=== PATIENT | female | born 1940 | race Caucasian/White ===

== ENCOUNTER → 2016-10-17 | Outpatient (CLI) | payer MEDICARE ==
[~2016-10-17] VITALS: Ht 149.9 cm; Wt 104.3 kg
[~2016-10-17] MED LIST: ASPIRIN 81M81 MG/TA2 PO; CALCIUM 600MG+D1 TAB PO; CORDARONE200 MG/TAB PO; ELIQUIS 5MG PO; FASTIN30 MG PO; FERROUS SULFATE27 MG PO; FISH OIL1000 MG PO; HYZAAR 25 MG-101 TAB PO; IRON TABLETS325 MG PO; K-DUR20 MEQ PO; KLOR-CON M2020 MEQ PO; LASIX 20MG TABL20 MG PO; LASIX 40MG TABL40 MG PO; MICRO-K 1010 MEQ PO; MIRO OU; MULTAQ400 MG PO; MULTIPLE VITAMI1 CAP PO; MYRBETR25MG PO; MYRBETR50MG PO; NORCO 325 MG-51 TAB PO; OSTEO-BI-FLEX 21 TAB PO; PHENTERMINE15 MG PO; PRADAXA 150MG150 MG PO; RITE AID BIO2500 MCG; SYNTHROID0.125 MG/T PO; TIAZAC120 MG PO; TIAZAC180 MG PO; TIAZAC240 MG PO; TOPAMAX 25MG25 M1 PO; TOPROL XL 50MG50 MG PO; TYLENOL 500MG500 MG PO; TYLENOL PM EXTR1 TA1 PO; ULTRAM 50MG TAB50 MG PO; VITAMIN D1000 IU PO; ZOCOR 40MG40 MG PO
[2016-10-17 11:02] VITALS: BP 124/60; PULSE 100
[2016-10-17 11:27] VITALS: BP 124/60; PULSE 100
== END ==
LOC: LIGHT 10:50
DX: E88.81 Metabolic syndrome and other insulin resistance (principal); E66.01 Morbid (severe) obesity due to excess calories; Z68.42 Body mass index [BMI] 45.0-49.9, adult; I10 Essential (primary) hypertension

== ENCOUNTER → 2016-12-05 | Outpatient (CLI) | payer MEDICARE ==
[~2016-12-05] VITALS: Ht 149.9 cm; Wt 103.9 kg
== END ==
LOC: LIGHT 10:15
DX: E88.81 Metabolic syndrome and other insulin resistance (principal); I10 Essential (primary) hypertension; R73.01 Impaired fasting glucose; E66.01 Morbid (severe) obesity due to excess calories; Z68.42 Body mass index [BMI] 45.0-49.9, adult

== ENCOUNTER → 2017-01-09 | Outpatient (CLI) | payer MEDICARE ==
[~2017-01-09] VITALS: Ht 149.9 cm; Wt 103.2 kg
[2017-01-09 11:19] VITALS: BP 136/80; PULSE 72
== END ==
LOC: LIGHT 11:15
DX: E88.81 Metabolic syndrome and other insulin resistance (principal); I10 Essential (primary) hypertension; E66.01 Morbid (severe) obesity due to excess calories; Z68.42 Body mass index [BMI] 45.0-49.9, adult

== ENCOUNTER → 2017-02-20 | Outpatient (CLI) | payer MEDICARE ==
[~2017-02-20] VITALS: Ht 149.9 cm; Wt 102.7 kg
[2017-02-20 11:38] VITALS: BP 132/62; PULSE 72
== END ==
LOC: LIGHT 11:35
DX: E88.81 Metabolic syndrome and other insulin resistance (principal); E66.01 Morbid (severe) obesity due to excess calories; Z68.42 Body mass index [BMI] 45.0-49.9, adult; Z71.3 Dietary counseling and surveillance; I10 Essential (primary) hypertension

== ENCOUNTER 2017-03-03 16:30 | Emergency (ER) | payer MEDICARE ==
[~2017-03-03] VITALS: Ht 149.9 cm; Wt 102.9 kg
[~2017-03-03 16:30] MED LIST changes: -MIRO OU; -NORCO 325 MG-51 TAB PO
[2017-03-03 16:32] VITALS: TEMP 98.3
[2017-03-03] MEDS ORDERED: NORCO 325 MG-51 TAB PO (18:18)
[2017-03-03 19:12] VITALS: BP 146/65; PULSE 80
[2017-05-29] MEDS ORDERED: MIRO OU (10:44)
== END 2017-03-03 19:20 | disposition home or self-care (01) ==
LOC: COL.ER 16:30
DX: S42.012A Anterior displaced fracture of sternal end of left clavicle, initial encounter for closed fracture (principal); W10.1XXA Fall (on)(from) sidewalk curb, initial encounter; Y92.512 Supermarket, store or market as the place of occurrence of the external cause; I48.91 Unspecified atrial fibrillation; Z79.01 Long term (current) use of anticoagulants; Z79.82 Long term (current) use of aspirin

== ENCOUNTER → 2017-04-17 | Outpatient (CLI) | payer MEDICARE ==
[~2017-04-17] VITALS: Ht 149.9 cm; Wt 102.5 kg
[~2017-04-17] MED LIST changes: +MIRO OU; +NORCO 325 MG-51 TAB PO
[2017-04-17 11:09] VITALS: BP 150/72; PULSE 68
== END ==
LOC: LIGHT 11:05
DX: E88.81 Metabolic syndrome and other insulin resistance (principal); E66.01 Morbid (severe) obesity due to excess calories; Z68.42 Body mass index [BMI] 45.0-49.9, adult; Z71.3 Dietary counseling and surveillance; I10 Essential (primary) hypertension

== ENCOUNTER → 2017-05-29 | Outpatient (CLI) | payer MEDICARE ==
[~2017-05-29] VITALS: Ht 149.9 cm; Wt 100.7 kg
[2017-05-29 10:48] VITALS: BP 138/78; PULSE 72
== END ==
LOC: LIGHT 05-29 10:37
DX: E88.81 Metabolic syndrome and other insulin resistance (principal); E66.01 Morbid (severe) obesity due to excess calories; Z68.41 Body mass index [BMI] 40.0-44.9, adult; Z71.3 Dietary counseling and surveillance; I10 Essential (primary) hypertension

== ENCOUNTER → 2017-07-10 | Outpatient (CLI) | payer MEDICARE ==
[~2017-07-10] VITALS: Ht 149.9 cm; Wt 98.2 kg
[2017-07-10 13:02] VITALS: BP 138/70; PULSE 64
== END ==
LOC: LIGHT 09:57
DX: E88.81 Metabolic syndrome and other insulin resistance (principal); E66.01 Morbid (severe) obesity due to excess calories; Z68.41 Body mass index [BMI] 40.0-44.9, adult; Z71.3 Dietary counseling and surveillance; I10 Essential (primary) hypertension

== ENCOUNTER → 2017-08-21 | Outpatient (CLI) | payer MEDICARE ==
[~2017-08-21] VITALS: Ht 149.9 cm; Wt 98.0 kg
[2017-08-21 11:29] VITALS: BP 124/80; PULSE 64
== END ==
LOC: LIGHT 10:39
DX: E88.81 Metabolic syndrome and other insulin resistance (principal); E66.01 Morbid (severe) obesity due to excess calories; Z68.41 Body mass index [BMI] 40.0-44.9, adult; Z71.3 Dietary counseling and surveillance; I10 Essential (primary) hypertension

== ENCOUNTER → 2017-09-18 | Outpatient (CLI) | payer MEDICARE ==
[~2017-09-18] VITALS: Ht 149.9 cm; Wt 97.7 kg
[2017-09-18 11:16] VITALS: BP 108/54; PULSE 56
== END ==
LOC: LIGHT 10:51
DX: E88.81 Metabolic syndrome and other insulin resistance (principal); E66.01 Morbid (severe) obesity due to excess calories; Z68.41 Body mass index [BMI] 40.0-44.9, adult; Z71.3 Dietary counseling and surveillance; I10 Essential (primary) hypertension
CPT/HCPCS: G0463

== ENCOUNTER → 2017-10-30 | Outpatient (CLI) | payer MEDICARE ==
[~2017-10-30] VITALS: Ht 149.9 cm; Wt 98.2 kg
[2017-10-30 11:31] VITALS: BP 138/70; PULSE 60
== END ==
LOC: LIGHT 10:22
DX: E88.81 Metabolic syndrome and other insulin resistance (principal); E66.01 Morbid (severe) obesity due to excess calories; Z68.41 Body mass index [BMI] 40.0-44.9, adult; Z71.3 Dietary counseling and surveillance; I10 Essential (primary) hypertension
CPT/HCPCS: G0463

== ENCOUNTER → 2017-12-25 | Outpatient (CLI) | payer MEDICARE ==
[~2017-12-25] VITALS: Ht 149.9 cm; Wt 96.8 kg
[2017-12-25 11:40] VITALS: BP 138/68; PULSE 60
== END ==
LOC: LIGHT 09:02
DX: E88.81 Metabolic syndrome and other insulin resistance (principal); E66.01 Morbid (severe) obesity due to excess calories; Z68.41 Body mass index [BMI] 40.0-44.9, adult; Z71.3 Dietary counseling and surveillance; I10 Essential (primary) hypertension
CPT/HCPCS: G0463

== ENCOUNTER → 2018-03-03 | Outpatient (CLI) | payer MEDICARE | LOC: MC.RAD 10:48 | DX: Z12.31 Encounter for screening mammogram for malignant neoplasm of breast (principal); N63.10 Unspecified lump in the right breast, unspecified quadrant ==

== ENCOUNTER → 2018-03-05 | Outpatient (CLI) | payer MEDICARE | LOC: MC.RAD 13:50 | DX: N63.10 Unspecified lump in the right breast, unspecified quadrant (principal) ==

== ENCOUNTER → 2018-03-12 | Outpatient (CLI) | payer MEDICARE ==
[~2018-03-12] VITALS: Ht 149.9 cm; Wt 96.8 kg
[~2018-03-12] MED LIST changes: +ZOCOR 10MG10 MG PO; -ZOCOR 40MG40 MG PO
[2018-03-12 11:11] VITALS: BP 150/64; PULSE 64
== END ==
LOC: LIGHT 10:55
DX: E88.81 Metabolic syndrome and other insulin resistance (principal); E66.01 Morbid (severe) obesity due to excess calories; Z68.41 Body mass index [BMI] 40.0-44.9, adult; Z71.3 Dietary counseling and surveillance; I10 Essential (primary) hypertension
CPT/HCPCS: G0463

== ENCOUNTER → 2018-04-09 | Outpatient (CLI) | payer MEDICARE | LOC: LIGHT 11:34 | DX: E88.81 Metabolic syndrome and other insulin resistance (principal); E66.01 Morbid (severe) obesity due to excess calories; Z71.3 Dietary counseling and surveillance; I10 Essential (primary) hypertension | CPT/HCPCS: G0463 ==

== ENCOUNTER → 2018-06-10 | Outpatient (CLI) | payer MEDICARE | LOC: MHCPAIN 14:19 | DX: G89.29 Other chronic pain (principal); M47.817 Spondylosis without myelopathy or radiculopathy, lumbosacral region; M54.16 Radiculopathy, lumbar region; M53.3 Sacrococcygeal disorders, not elsewhere classified | CPT/HCPCS: G0463 ==

== ENCOUNTER → 2018-06-10 | Outpatient (CLI) | payer MEDICARE | LOC: COL.RAD 15:30 | DX: Z46.2 Encounter for fitting and adjustment of other devices related to nervous system and special senses (principal); M47.895 Other spondylosis, thoracolumbar region; M53.87 Other specified dorsopathies, lumbosacral region ==

== ENCOUNTER → 2018-06-11 | Outpatient (CLI) | payer MEDICARE ==
[~2018-06-11] VITALS: Ht 149.9 cm; Wt 93.7 kg
[2018-06-11 11:39] VITALS: BP 144/72; PULSE 68
== END ==
LOC: LIGHT 11:05
DX: E88.81 Metabolic syndrome and other insulin resistance (principal); R73.01 Impaired fasting glucose; I10 Essential (primary) hypertension; E66.01 Morbid (severe) obesity due to excess calories; Z68.41 Body mass index [BMI] 40.0-44.9, adult; Z71.3 Dietary counseling and surveillance
CPT/HCPCS: G0463

== ENCOUNTER → 2018-06-29 | Outpatient (CLI) | payer MEDICARE | LOC: MHCPAIN 12:47 | DX: M47.817 Spondylosis without myelopathy or radiculopathy, lumbosacral region (principal); M54.16 Radiculopathy, lumbar region | CPT/HCPCS: J1040; Q9967 ==

== ENCOUNTER → 2018-07-21 | Outpatient (CLI) | payer MEDICARE | LOC: COL.RAD 09:19 | DX: N18.1 Chronic kidney disease, stage 1 (principal); N28.1 Cyst of kidney, acquired ==

== ENCOUNTER → 2018-08-20 | Outpatient (CLI) | payer MEDICARE, OTHER | LOC: MC.RAD 08:47 | DX: N63.10 Unspecified lump in the right breast, unspecified quadrant (principal) ==

== ENCOUNTER → 2018-09-03 | Outpatient (CLI) | payer MEDICARE ==
[~2018-09-03] VITALS: Ht 149.9 cm; Wt 95.0 kg
[2018-09-03 11:29] VITALS: BP 152/70; PULSE 80
== END ==
LOC: LIGHT 11:06
DX: E88.81 Metabolic syndrome and other insulin resistance (principal); R73.01 Impaired fasting glucose; I10 Essential (primary) hypertension; E66.01 Morbid (severe) obesity due to excess calories; Z68.42 Body mass index [BMI] 45.0-49.9, adult; Z71.3 Dietary counseling and surveillance
CPT/HCPCS: G0463

== ENCOUNTER → 2018-09-29 | Outpatient (CLI) | payer MEDICARE | LOC: MHCPAIN 14:51 | DX: G89.29 Other chronic pain (principal); M47.817 Spondylosis without myelopathy or radiculopathy, lumbosacral region; M54.16 Radiculopathy, lumbar region; M53.3 Sacrococcygeal disorders, not elsewhere classified | CPT/HCPCS: G0463 ==

== ENCOUNTER 2018-10-20 08:24 | Day surgery (SDC) | payer MEDICARE ==
[~2018-10-20] VITALS: Ht 149.9 cm; Wt 96.7 kg
[~2018-10-20 08:24] MED LIST changes: -CALCIUM 600MG+D1 TAB PO; +CALCIUM CARBON650 M2 PO; -VITAMIN D1000 IU PO; +VITAMIND3 5000 PO
[2018-10-20] MEDS ORDERED: AMOXICILLIN 50500 MG PO (08:54)
[2018-10-20] MEDS ORDERED: COLACE 100100 MG/CAP PO (09:02)
[2018-10-20 09:17] VITALS: BP 171/99; PULSE 73; TEMP 97.7
[2018-10-20 10:45] VITALS: BP 140/66; PULSE 71; TEMP 98.5
--- NOTE | 2018-10-20 10:45 | NUR ---
Pt to GI bay 5 via cart from [address] [facility]. Pt drowsy, but awake. Pt ambulates to recliner with stand by assitance. in room. Water and muffin given per pt request. Will continue to monitor. Call light within reach.
[2018-10-20 11:00] VITALS: BP 133/53; PULSE 74
--- NOTE | 2018-10-20 11:00 | NUR ---
Pt continues to rest. Denies needs. Call light within reach.
[2018-10-20 11:15] VITALS: BP 135/72; PULSE 70
--- NOTE | 2018-10-20 11:15 | NUR ---
Pt continues to rest. Denies needs. Call light within reach.
--- NOTE | 2018-10-20 11:20 | NUR ---
Discharge instructions provided. Pt voices understanding. IV site discontinued with all parts intact. Pt up to dress. Call light within reach.
--- NOTE | 2018-10-20 11:20 | NUR ---
Pt escorted to private car via wheel chair. Pt accompanied home by her .
[2018-10-20 12:44] VITALS: BP 125/56; PULSE 68
== END 2018-10-20 11:40 | disposition home or self-care (01) ==
LOC: SDCO 08:24
DX: Z12.11 Encounter for screening for malignant neoplasm of colon (principal); D12.3 Benign neoplasm of transverse colon; K64.0 First degree hemorrhoids; K57.30 Diverticulosis of large intestine without perforation or abscess without bleeding; I10 Essential (primary) hypertension; E78.00 Pure hypercholesterolemia, unspecified; E03.9 Hypothyroidism, unspecified; I48.91 Unspecified atrial fibrillation; Z96.653 Presence of artificial knee joint, bilateral; Z79.01 Long term (current) use of anticoagulants; Z88.1 Allergy status to other antibiotic agents; Z88.2 Allergy status to sulfonamides; Z91.018 Allergy to other foods
CPT/HCPCS: J2250; J2405; J3010; J7030

== ENCOUNTER → 2018-12-03 | Outpatient (CLI) | payer MEDICARE ==
[~2018-12-03] VITALS: Ht 149.9 cm; Wt 97.7 kg
[~2018-12-03] MED LIST changes: +AMOXICILLIN 50500 MG PO; +COLACE 100100 MG/CAP PO
[2018-12-03 11:45] VITALS: BP 150/64; PULSE 60
== END ==
LOC: LIGHT 10-29 15:25
DX: E88.81 Metabolic syndrome and other insulin resistance (principal); R73.01 Impaired fasting glucose; I10 Essential (primary) hypertension; E66.01 Morbid (severe) obesity due to excess calories; Z68.41 Body mass index [BMI] 40.0-44.9, adult; Z71.3 Dietary counseling and surveillance
CPT/HCPCS: G0463

== ENCOUNTER → 2018-12-22 | Outpatient (CLI) | payer MEDICARE | LOC: MHCPAIN 13:40 | DX: G89.29 Other chronic pain (principal); M47.817 Spondylosis without myelopathy or radiculopathy, lumbosacral region; M54.16 Radiculopathy, lumbar region; M53.3 Sacrococcygeal disorders, not elsewhere classified | CPT/HCPCS: G0463 ==

== ENCOUNTER → 2018-12-31 | Outpatient (CLI) | payer MEDICARE | LOC: MHCPAIN 12:55 | DX: M47.817 Spondylosis without myelopathy or radiculopathy, lumbosacral region (principal); M54.16 Radiculopathy, lumbar region | CPT/HCPCS: J1100; Q9967 ==

== ENCOUNTER → 2019-01-28 | Outpatient (CLI) | payer MEDICARE ==
[~2019-01-28] VITALS: Ht 149.9 cm; Wt 98.9 kg
[~2019-01-28] MED LIST changes: +TOPAMAX50 MG PO
[2019-01-28 10:01] VITALS: BP 150/70; PULSE 84
== END ==
LOC: LIGHT 09:53
DX: E88.81 Metabolic syndrome and other insulin resistance (principal); R73.01 Impaired fasting glucose; I10 Essential (primary) hypertension; E66.01 Morbid (severe) obesity due to excess calories; Z68.41 Body mass index [BMI] 40.0-44.9, adult; Z71.3 Dietary counseling and surveillance
CPT/HCPCS: G0463

== ENCOUNTER → 2019-03-04 | Outpatient (CLI) | payer MEDICARE ==
[~2019-03-04] VITALS: Ht 149.9 cm; Wt 94.1 kg
[2019-03-04 11:57] VITALS: BP 130/60; PULSE 76
== END ==
LOC: LIGHT 11:23
DX: E88.81 Metabolic syndrome and other insulin resistance (principal); R73.01 Impaired fasting glucose; I10 Essential (primary) hypertension; E66.01 Morbid (severe) obesity due to excess calories; Z68.41 Body mass index [BMI] 40.0-44.9, adult; Z71.3 Dietary counseling and surveillance
CPT/HCPCS: G0463

== ENCOUNTER → 2019-04-06 | Outpatient (CLI) | payer MEDICARE | LOC: MHCPAIN 13:06 | DX: G89.29 Other chronic pain (principal); M47.817 Spondylosis without myelopathy or radiculopathy, lumbosacral region; M54.16 Radiculopathy, lumbar region; M53.3 Sacrococcygeal disorders, not elsewhere classified | CPT/HCPCS: G0463 ==

== ENCOUNTER → 2019-04-15 | Outpatient (CLI) | payer MEDICARE ==
[~2019-04-15] VITALS: Ht 149.9 cm; Wt 93.4 kg
[2019-04-15 13:32] VITALS: BP 146/76; PULSE 68
== END ==
LOC: LIGHT 11:48
DX: E88.81 Metabolic syndrome and other insulin resistance (principal); R73.01 Impaired fasting glucose; I10 Essential (primary) hypertension; E66.01 Morbid (severe) obesity due to excess calories; Z68.41 Body mass index [BMI] 40.0-44.9, adult; Z71.3 Dietary counseling and surveillance
CPT/HCPCS: G0463

== ENCOUNTER → 2019-04-19 | Outpatient (CLI) | payer MEDICARE | LOC: MHCPAIN 10:58 | DX: M47.817 Spondylosis without myelopathy or radiculopathy, lumbosacral region (principal); M54.16 Radiculopathy, lumbar region | CPT/HCPCS: J1100; Q9967 ==

== ENCOUNTER → 2019-06-10 | Outpatient (CLI) | payer MEDICARE ==
[~2019-06-10] VITALS: Ht 149.9 cm; Wt 94.3 kg
[2019-06-10 14:10] VITALS: BP 136/56; PULSE 64
== END ==
LOC: LIGHT 05-27 11:41
DX: E88.81 Metabolic syndrome and other insulin resistance (principal); R73.01 Impaired fasting glucose; I10 Essential (primary) hypertension; E66.01 Morbid (severe) obesity due to excess calories; Z68.41 Body mass index [BMI] 40.0-44.9, adult; Z71.3 Dietary counseling and surveillance
CPT/HCPCS: G0463

== ENCOUNTER → 2019-07-29 | Outpatient (CLI) | payer MEDICARE ==
[~2019-07-29] VITALS: Ht 149.9 cm; Wt 94.6 kg
[2019-07-29 13:16] VITALS: BP 160/80; PULSE 68
== END ==
LOC: LIGHT 11:50
DX: E88.81 Metabolic syndrome and other insulin resistance (principal); R73.01 Impaired fasting glucose; I10 Essential (primary) hypertension; E66.01 Morbid (severe) obesity due to excess calories; Z68.41 Body mass index [BMI] 40.0-44.9, adult; Z71.3 Dietary counseling and surveillance
CPT/HCPCS: G0463

== ENCOUNTER → 2019-08-11 | Outpatient (CLI) | payer MEDICARE | LOC: MHCPAIN 12:50 | DX: G89.29 Other chronic pain (principal); M47.817 Spondylosis without myelopathy or radiculopathy, lumbosacral region; M54.16 Radiculopathy, lumbar region; M53.3 Sacrococcygeal disorders, not elsewhere classified | CPT/HCPCS: G0463 ==

== ENCOUNTER → 2019-08-23 | Outpatient (CLI) | payer MEDICARE | LOC: MHCPAIN 10:44 | DX: M51.27 Other intervertebral disc displacement, lumbosacral region (principal) | CPT/HCPCS: J1100; Q9967 ==

== ENCOUNTER → 2019-12-02 | Outpatient (CLI) | payer MEDICARE ==
[~2019-12-02] VITALS: Ht 149.9 cm; Wt 98.4 kg
[2019-12-02 14:46] VITALS: BP 154/72; PULSE 60
== END ==
LOC: LIGHT 11-11 13:50
DX: Z68.41 Body mass index [BMI] 40.0-44.9, adult (principal); E88.81 Metabolic syndrome and other insulin resistance; R73.01 Impaired fasting glucose; I10 Essential (primary) hypertension
CPT/HCPCS: G0463

== ENCOUNTER → 2020-02-08 | Outpatient (CLI) | payer MEDICARE | LOC: MHCPAIN 14:40 | DX: M53.3 Sacrococcygeal disorders, not elsewhere classified (principal); M54.5 Low back pain; G89.29 Other chronic pain | CPT/HCPCS: G0463 ==

== ENCOUNTER → 2020-02-24 | Outpatient (CLI) | payer MEDICARE | LOC: MHCPAIN 07:46 | DX: M53.3 Sacrococcygeal disorders, not elsewhere classified (principal); G89.29 Other chronic pain | CPT/HCPCS: G0260; J1040; Q9967 ==

== ENCOUNTER 2020-05-31 06:39 | Day surgery (SDC) | payer MEDICARE ==
[~2020-05-31] VITALS: Ht 149.9 cm; Wt 100.0 kg
[~2020-05-31 06:39] MED LIST changes: -MULTIPLE VITAMI1 CAP PO; +MULTIPLE VITAMI1 TA5 PO
[2020-05-31] MEDS ORDERED: TYLENOL 500MG500 MG PO (08:02)
[2020-05-31] MEDS ORDERED: TYLENOL PM EXTR1 TA1 PO (08:03)
[2020-05-31] MEDS ORDERED: MASON NATURAL2000 IU PO (08:04)
[2020-05-31] MEDS ORDERED: MYRBETR50MG PO (08:08)
[2020-05-31 08:11] VITALS: BP 142/71; PULSE 83; TEMP 98
[2020-05-31 11:02] VITALS: BP 134/72; PULSE 68; TEMP 97.4
--- NOTE | 2020-05-31 11:02 | NUR ---
The patient arrived back to [facility] from the operating room at this time. The patient appears alert and oriented and denies any pain or nausea at this time. Post operative vital signs were started at this time. The patient agrees to try some cranberry juice and a blueberry muffin. Call light is within reach. The patient denies any further needs at this time. Will continue to monitor the patient.
[2020-05-31 11:17] VITALS: BP 153/73; PULSE 77
--- NOTE | 2020-05-31 11:17 | NUR ---
The patient appears to be resting comfortably on the cart at this time. The patient appears to be tolerating her food well and denies wanting anything further to eat or drink at this itme. Call light is within reach. Will continue to monitor the patient.
[2020-05-31 11:32] VITALS: BP 139/67; PULSE 75
--- NOTE | 2020-05-31 11:32 | NUR ---
The patient has finished her food and drink and appeared to tolerate both well. The patient denies any pain or nausea at this time. Vital signs appear stable. Will continue to monitor the patient.
--- NOTE | 2020-05-31 11:38 | NUR ---
The patient ambulated to the bathroom with the use of her walker and the stand by assistance of one nurse and appeared to tolerate the activity well. The patient voided without difficulty and voices a desire to be discharged home.
--- NOTE | 2020-05-31 11:47 | NUR ---
Discharge instructions were reviewed with the patient at this time. She verbalized understanding and has no questions for the nurse at this time. The patient's IV to her left hand was removed and a pressure dressing was applied to the site. The patient was instructed to get dressed and notify the staff when she is ready to be escorted out.
--- NOTE | 2020-05-31 11:55 | NUR ---
The patient was escorted out to a private vehicle by EMMA Hendrickson. The patient's belongings and discharge paperwork were sent with her. The patient's is present to drive her home.
== END 2020-05-31 11:55 | disposition home or self-care (01) ==
LOC: SDCO
DX: N39.46 Mixed incontinence (principal); R35.0 Frequency of micturition; I48.91 Unspecified atrial fibrillation; I10 Essential (primary) hypertension; E03.9 Hypothyroidism, unspecified; E66.01 Morbid (severe) obesity due to excess calories; Z88.1 Allergy status to other antibiotic agents; Z20.828 Contact with and (suspected) exposure to other viral communicable diseases; E88.81 Metabolic syndrome and other insulin resistance; M85.80 Other specified disorders of bone density and structure, unspecified site; E78.00 Pure hypercholesterolemia, unspecified; M19.90 Unspecified osteoarthritis, unspecified site; G47.33 Obstructive sleep apnea (adult) (pediatric); Z88.2 Allergy status to sulfonamides; Z90.710 Acquired absence of both cervix and uterus; Z79.899 Other long term (current) drug therapy; Z96.82 Presence of neurostimulator; Z79.82 Long term (current) use of aspirin; Z96.653 Presence of artificial knee joint, bilateral; Z79.01 Long term (current) use of anticoagulants; Z80.3 Family history of malignant neoplasm of breast; Z80.0 Family history of malignant neoplasm of digestive organs; Z82.49 Family history of ischemic heart disease and other diseases of the circulatory system
CPT/HCPCS: A4215; J0585; J0690; J2704; J7120

== ENCOUNTER → 2020-06-27 | Outpatient (CLI) | payer MEDICARE ==
[~2020-06-27] MED LIST changes: +MASON NATURAL2000 IU PO
== END ==
LOC: MHCPAIN 14:19
DX: M47.817 Spondylosis without myelopathy or radiculopathy, lumbosacral region (principal); M54.5 Low back pain; M53.3 Sacrococcygeal disorders, not elsewhere classified; G89.29 Other chronic pain
CPT/HCPCS: G0463

== ENCOUNTER → 2020-10-17 | Outpatient (CLI) | payer MEDICARE | LOC: MHCPAIN 15:23 | DX: M47.817 Spondylosis without myelopathy or radiculopathy, lumbosacral region (principal); M53.3 Sacrococcygeal disorders, not elsewhere classified; G89.29 Other chronic pain; M54.16 Radiculopathy, lumbar region | CPT/HCPCS: G0463 ==

== ENCOUNTER → 2020-12-26 | Outpatient (CLI) | payer MEDICARE ==
[~2020-12-26] MED LIST changes: +CALCIUM 600MG+D1 TAB PO; -CALCIUM CARBON650 M2 PO; -FISH OIL1000 MG PO; +LIPITOR 10MG10 MG PO; +MAG-OX 400400 MG/TAB PO; +MASON NATURAL1200 MG PO; +PACERONE400 MG PO; +PROAIR HFA0.09 MG/AC IH; +PYRIDIUM 100MG100 MG PO; +REFRESH TEARS 330 ML OP; +SALINE 45 ML45 ML NS; +THE MEDICINE S200 M2 PO; +VESICARE 5MG5 MG PO; +XOPENEX HF0.045 MG/A IH; +[UNRECOGNIZED DRUG - OTHER] PO
== END ==
LOC: MC.RAD 14:16
DX: Z12.31 Encounter for screening mammogram for malignant neoplasm of breast (principal)

== ENCOUNTER → 2021-01-03 | Outpatient (CLI) | payer MEDICARE | LOC: MHCPAIN 14:13 | DX: M47.816 Spondylosis without myelopathy or radiculopathy, lumbar region (principal); M54.16 Radiculopathy, lumbar region; G89.29 Other chronic pain | CPT/HCPCS: G0463 ==

== ENCOUNTER 2021-02-13 06:59 | Day surgery (SDC) | payer MEDICARE ==
[~2021-02-13] VITALS: Ht 149.9 cm; Wt 98.2 kg
[~2021-02-13 06:59] MED LIST changes: -LIPITOR 10MG10 MG PO; -MAG-OX 400400 MG/TAB PO; -PACERONE400 MG PO; -PROAIR HFA0.09 MG/AC IH; -PYRIDIUM 100MG100 MG PO; -REFRESH TEARS 330 ML OP; -SALINE 45 ML45 ML NS; -THE MEDICINE S200 M2 PO; -VESICARE 5MG5 MG PO; -XOPENEX HF0.045 MG/A IH; -[UNRECOGNIZED DRUG - OTHER] PO
[2021-02-13 08:12] LABS: HEMATOCRIT 42.2 % (37.0-47.0); MEAN CELL VOLUME 98 fl (80.0-100.0); MEAN CORPUSCULAR HEMOGLOBIN 33 pg (27.0-31.0); MEAN CORPUSCULAR HGB CONC 33 g/dl (33.0-37.0); MEAN PLATELET VOLUME 10.3 fl (7.4-10.4); PLATELET COUNT 216 K/mm3 (130-400); REDCELL DISTRIBUTION WIDTH-CV 13.4 % (11.5-14.5)
[2021-02-13 08:20] LABS: INR 1.2 (0.8-3.0); PROTHROMBIN TIME 12.8 SECONDS (9.7-12.8)
[2021-02-13 08:22] LABS: PARTIAL THROMBOPLASTIN TIME 33.3 SECONDS (26.0-37.0)
[2021-02-13 08:25] LABS: CALCIUM 9.5 mg/dL (8.4-10.2); CREATININE, serum 0.49 (0.52-1.25); MAGNESIUM 1.6 mg/dL (1.6-2.3); POTASSIUM 3.5 mmol/L (3.4-5.0)
[2021-02-13 08:41] VITALS: BP 134/99; PULSE 81; TEMP 97.7
[2021-02-13 08:55] LABS: THYROID STIMULATING HORMONE 1.06 uIU/mL (0.465-4.680)
[2021-02-13] MEDS ORDERED: MYRBETR25MG PO (09:02)
[2021-02-13] MEDS ORDERED: [UNRECOGNIZED DRUG - OTHER] PO (09:04)
[2021-02-13] MEDS ORDERED: SALINE 45 ML45 ML NS (09:04)
[2021-02-13] MEDS ORDERED: REFRESH TEARS 330 ML OP (09:06)
[2021-02-13] MEDS ORDERED: PACERONE400 MG PO (09:15)
[2021-02-13] MEDS ORDERED: LIPITOR 10MG10 MG PO (09:16)
[2021-02-13 09:26] VITALS: BP 119/67; PULSE 70
[2021-02-13 09:30] VITALS: BP 109/61; PULSE 70
[2021-02-13 09:45] VITALS: BP 116/66; PULSE 70
[2021-02-13 10:00] VITALS: BP 121/70; PULSE 76
[2021-02-13 10:15] VITALS: BP 129/63; PULSE 76
--- NOTE | 2021-02-13 10:34 | NUR ---
Discharge instructions given to pt.Pt verbalizes understanding.INt removed,catheter tip intact.Pt escorted out via wheelchair by this nurse.
== END 2021-02-13 10:38 | disposition home or self-care (01) ==
LOC: COL.CAR 06:59
PROVIDERS: Internal Medicine Cardiovascular Disease
DX: I48.0 Paroxysmal atrial fibrillation (principal); I10 Essential (primary) hypertension; E78.5 Hyperlipidemia, unspecified; G47.33 Obstructive sleep apnea (adult) (pediatric); M19.90 Unspecified osteoarthritis, unspecified site; G89.29 Other chronic pain; M54.9 Dorsalgia, unspecified; N32.81 Overactive bladder; M54.30 Sciatica, unspecified side; E07.9 Disorder of thyroid, unspecified; I08.0 Rheumatic disorders of both mitral and aortic valves; Z99.89 Dependence on other enabling machines and devices; Z79.82 Long term (current) use of aspirin; Z79.899 Other long term (current) drug therapy; Z79.01 Long term (current) use of anticoagulants; Z87.891 Personal history of nicotine dependence; Z79.890 Hormone replacement therapy; Z80.3 Family history of malignant neoplasm of breast; Z80.0 Family history of malignant neoplasm of digestive organs
CPT/HCPCS: J2704

== ENCOUNTER 2021-03-16 07:55 | Day surgery (SDC) | payer MEDICARE ==
[~2021-03-16] VITALS: Ht 144.8 cm; Wt 97.8 kg
[2021-03-16] VITALS (9 sets, daily range): BP systolic 104–138; BP diastolic 66–95; PULSE 64–87; TEMP 97.7
[~2021-03-16 07:55] MED LIST changes: +LIPITOR 10MG10 MG PO; +PACERONE400 MG PO; +REFRESH TEARS 330 ML OP; +SALINE 45 ML45 ML NS; +[UNRECOGNIZED DRUG - OTHER] PO
[2021-03-16 08:51] LABS: HEMATOCRIT 44.2 % (37.0-47.0); HEMOGLOBIN 14.4 g/dl (12.5-16.0); MEAN CELL VOLUME 98 fl (80.0-100.0); MEAN CORPUSCULAR HEMOGLOBIN 32 pg (27.0-31.0); MEAN CORPUSCULAR HGB CONC 33 g/dl (33.0-37.0); MEAN PLATELET VOLUME 9.8 fl (7.4-10.4); PLATELET COUNT 218 K/mm3 (130-400); RED BLOOD COUNT 4.51 M/mm3 (4.10-5.30); REDCELL DISTRIBUTION WIDTH-CV 13.4 % (11.5-14.5)
[2021-03-16 08:59] LABS: INR 1.1 (0.8-3.0); PROTHROMBIN TIME 12.5 SECONDS (9.7-12.8)
[2021-03-16 09:00] LABS: CALCIUM 9.8 mg/dL (8.4-10.2); CREATININE, serum 0.62 (0.52-1.25); MAGNESIUM 1.8 mg/dL (1.6-2.3); POTASSIUM 3.7 mmol/L (3.4-5.0)
[2021-03-16] MEDS ORDERED: THE MEDICINE S200 M2 PO (09:00)
[2021-03-16 09:01] LABS: PARTIAL THROMBOPLASTIN TIME 33.6 SECONDS (26.0-37.0)
[2021-03-16] MEDS ORDERED: LASIX 40MG TABL40 MG PO (09:01)
[2021-03-16 09:58] LABS: THYROID STIMULATING HORMONE 0.395 uIU/mL (0.465-4.680)
[2021-03-16] MEDS ORDERED: XOPENEX HF0.045 MG/A IH (12:58)
--- NOTE | 2021-03-16 13:25 | NUR ---
DC instructions reviewed with pt by Sue Murray RN. IV DC'd with catheter intact. Pt assisted out with belongings by wheelchair to 's car.
== END 2021-03-16 13:25 | disposition home or self-care (01) ==
LOC: COL.CAR 07:55
PROVIDERS: Internal Medicine Cardiovascular Disease
DX: I48.0 Paroxysmal atrial fibrillation (principal); I11.9 Hypertensive heart disease without heart failure; I08.3 Combined rheumatic disorders of mitral, aortic and tricuspid valves; G47.33 Obstructive sleep apnea (adult) (pediatric); E07.9 Disorder of thyroid, unspecified; Z20.822 Contact with and (suspected) exposure to COVID-19; E78.5 Hyperlipidemia, unspecified; Z79.899 Other long term (current) drug therapy; Z79.01 Long term (current) use of anticoagulants; Z87.891 Personal history of nicotine dependence; Z79.82 Long term (current) use of aspirin; Z95.0 Presence of cardiac pacemaker; Z79.890 Hormone replacement therapy
CPT/HCPCS: J2704; J3475; J7120

== ENCOUNTER → 2021-04-03 | Outpatient (CLI) | payer MEDICARE ==
[~2021-04-03] MED LIST changes: +MAG-OX 400400 MG/TAB PO; +PROAIR HFA0.09 MG/AC IH; +PYRIDIUM 100MG100 MG PO; +THE MEDICINE S200 M2 PO; +VESICARE 5MG5 MG PO; +XOPENEX HF0.045 MG/A IH
== END ==
LOC: MHCPAIN 14:16
DX: M47.816 Spondylosis without myelopathy or radiculopathy, lumbar region (principal); M54.5 Low back pain; M53.3 Sacrococcygeal disorders, not elsewhere classified
CPT/HCPCS: G0463

== ENCOUNTER 2021-05-18 07:16 | Day surgery (SDC) | payer MEDICARE ==
[~2021-05-18] VITALS: Ht 149.9 cm; Wt 98.5 kg
[2021-05-18] VITALS (10 sets, daily range): BP systolic 122–151; BP diastolic 54–77; PULSE 51–91; TEMP 97.8
[~2021-05-18 07:16] MED LIST changes: -MAG-OX 400400 MG/TAB PO; -PROAIR HFA0.09 MG/AC IH; -PYRIDIUM 100MG100 MG PO; -VESICARE 5MG5 MG PO
[2021-05-18 08:18] LABS: HEMATOCRIT 41.4 % (37.0-47.0); HEMOGLOBIN 13.7 g/dl (12.5-16.0); MEAN CELL VOLUME 98 fl (80.0-100.0); MEAN CORPUSCULAR HEMOGLOBIN 33 pg (27.0-31.0); MEAN CORPUSCULAR HGB CONC 33 g/dl (33.0-37.0); MEAN PLATELET VOLUME 9.9 fl (7.4-10.4); PLATELET COUNT 219 K/mm3 (130-400); RED BLOOD COUNT 4.21 M/mm3 (4.10-5.30); REDCELL DISTRIBUTION WIDTH-CV 13.5 % (11.5-14.5)
[2021-05-18 08:30] LABS: CALCIUM 9.9 mg/dL (8.4-10.2); CREATININE, serum 0.65 (0.52-1.25); MAGNESIUM 1.5 mg/dL (1.6-2.3); POTASSIUM 3.8 mmol/L (3.4-5.0)
[2021-05-18 08:33] LABS: INR 1.5 (0.8-3.0); PROTHROMBIN TIME 16.6 SECONDS (9.7-12.8)
[2021-05-18 08:35] LABS: PARTIAL THROMBOPLASTIN TIME 34.2 SECONDS (26.0-37.0)
[2021-05-18] MEDS ORDERED: PROAIR HFA0.09 MG/AC IH (08:48)
[2021-05-18] MEDS ORDERED: MAG-OX 400400 MG/TAB PO (09:26)
[2021-05-18 09:29] LABS: THYROID STIMULATING HORMONE 0.626 uIU/mL (0.350-4.940)
--- NOTE | 2021-05-18 12:27 | NUR ---
DC instructions reviewed with pt, she expresses understanding. She is steady on feet in room. She tolerated crackers and coffee with no c/o nausea. INT DC'd with catheter intact. She is assisted out to 's car by wheelchair with belongings.
== END 2021-05-18 12:28 | disposition home or self-care (01) ==
LOC: COL.CAR 07:16
PROVIDERS: Internal Medicine Cardiovascular Disease
DX: I48.0 Paroxysmal atrial fibrillation (principal); I10 Essential (primary) hypertension; I08.1 Rheumatic disorders of both mitral and tricuspid valves; E78.5 Hyperlipidemia, unspecified; E03.9 Hypothyroidism, unspecified; M19.90 Unspecified osteoarthritis, unspecified site; M54.9 Dorsalgia, unspecified; G47.33 Obstructive sleep apnea (adult) (pediatric); Z99.89 Dependence on other enabling machines and devices; Z20.822 Contact with and (suspected) exposure to COVID-19; Z79.01 Long term (current) use of anticoagulants; Z79.890 Hormone replacement therapy; Z79.899 Other long term (current) drug therapy; Z95.0 Presence of cardiac pacemaker
CPT/HCPCS: J2704; J3475

== ENCOUNTER → 2021-07-03 | Outpatient (CLI) | payer MEDICARE ==
[~2021-07-03] MED LIST changes: +MAG-OX 400400 MG/TAB PO; +PROAIR HFA0.09 MG/AC IH; +PYRIDIUM 100MG100 MG PO; +VESICARE 5MG5 MG PO
== END ==
LOC: MHCPAIN 14:35
DX: M47.816 Spondylosis without myelopathy or radiculopathy, lumbar region (principal); M54.50 Low back pain, unspecified; M53.3 Sacrococcygeal disorders, not elsewhere classified; M79.2 Neuralgia and neuritis, unspecified
CPT/HCPCS: G0463

== ENCOUNTER 2021-07-17 10:15 | Day surgery (SDC) | payer MEDICARE ==
[~2021-07-17] VITALS: Ht 149.9 cm; Wt 98.6 kg
[~2021-07-17 10:15] MED LIST changes: -PYRIDIUM 100MG100 MG PO; -VESICARE 5MG5 MG PO
[2021-07-17 11:17] VITALS: BP 157/81; PULSE 69; TEMP 97.3
[2021-07-17] MEDS ORDERED: XOPENEX HF0.045 MG/A IH (11:57)
[2021-07-17] MEDS ORDERED: VESICARE 5MG5 MG PO (11:57)
[2021-07-17] MEDS ORDERED: CORDARONE200 MG/TAB PO (11:58)
[2021-07-17 13:17] VITALS: BP 114/54; PULSE 74
--- NOTE | 2021-07-17 13:17 | NUR ---
Patient returns to room 3 per cart from surgery accompanied by Fer CARTER and Yobani SIMON and is awake and alert. IV fluids infusing and patient denies pain or nausea. Temp 97.7. Siderails up x2 and call light in reach. Allowed to rest.
[2021-07-17] MEDS ORDERED: PYRIDIUM 100MG100 MG PO (13:19)
[2021-07-17 13:32] VITALS: BP 126/88; PULSE 72
--- NOTE | 2021-07-17 13:32 | NUR ---
Continues to rest and is drinking water. States she will eat at home.
[2021-07-17 13:47] VITALS: BP 127/67; PULSE 60
--- NOTE | 2021-07-17 13:47 | NUR ---
Does well drinking water.
[2021-07-17 14:02] VITALS: BP 137/66; PULSE 68
--- NOTE | 2021-07-17 14:02 | NUR ---
IV discontinued and site is free of redness. Assisted up to the bathroom and uses wheeled walker for transfer. Gait steady. Voids and returns to room. Dresses self.
--- NOTE | 2021-07-17 14:20 | NUR ---
Dismissal instructions given and voices understanding of these.
--- NOTE | 2021-07-17 14:29 | NUR ---
Discharged to home driven by spouse and taken to the front door per wheelchair and assisted into vehicle with dismissal instructions in hand.
== END 2021-07-17 14:29 | disposition home or self-care (01) ==
LOC: SDCO 10:15
DX: N39.41 Urge incontinence (principal); R35.0 Frequency of micturition; R80.9 Proteinuria, unspecified; I48.91 Unspecified atrial fibrillation; I10 Essential (primary) hypertension; E66.01 Morbid (severe) obesity due to excess calories; G47.33 Obstructive sleep apnea (adult) (pediatric); I08.1 Rheumatic disorders of both mitral and tricuspid valves; E07.9 Disorder of thyroid, unspecified; E78.2 Mixed hyperlipidemia; C80.1 Malignant (primary) neoplasm, unspecified; M54.30 Sciatica, unspecified side; E88.81 Metabolic syndrome and other insulin resistance; M16.0 Bilateral primary osteoarthritis of hip; Z95.0 Presence of cardiac pacemaker; Z79.82 Long term (current) use of aspirin; Z79.01 Long term (current) use of anticoagulants; Z79.899 Other long term (current) drug therapy; Z96.89 Presence of other specified functional implants; Z96.82 Presence of neurostimulator; Z79.890 Hormone replacement therapy; Z79.891 Long term (current) use of opiate analgesic
CPT/HCPCS: A4215; J0585; J7120

== ENCOUNTER → 2021-10-02 | Outpatient (CLI) | payer MEDICARE ==
[~2021-10-02] MED LIST changes: +PYRIDIUM 100MG100 MG PO; +VESICARE 5MG5 MG PO
== END ==
LOC: MHCPAIN 13:44
DX: M47.896 Other spondylosis, lumbar region (principal); M54.16 Radiculopathy, lumbar region; M53.3 Sacrococcygeal disorders, not elsewhere classified
CPT/HCPCS: G0463

== ENCOUNTER → 2022-05-14 | Outpatient (CLI) | payer MEDICARE | LOC: MHCPAIN 14:11 | DX: M54.16 Radiculopathy, lumbar region (principal); M54.50 Low back pain, unspecified; M47.896 Other spondylosis, lumbar region | CPT/HCPCS: G0463 ==

== ENCOUNTER → 2022-07-30 | Outpatient (CLI) | payer MEDICARE | LOC: MHCPAIN 13:52 | DX: M54.16 Radiculopathy, lumbar region (principal); M47.896 Other spondylosis, lumbar region; G89.29 Other chronic pain | CPT/HCPCS: G0463 ==

== ENCOUNTER → 2022-12-03 | Outpatient (CLI) | payer MEDICARE | LOC: MHCPAIN 13:47 | DX: M54.50 Low back pain, unspecified (principal); M54.16 Radiculopathy, lumbar region; I48.91 Unspecified atrial fibrillation; I25.10 Atherosclerotic heart disease of native coronary artery without angina pectoris | CPT/HCPCS: G0463 ==

== ENCOUNTER → 2023-06-03 | Outpatient (CLI) | payer MEDICARE ==
[~2023-06-03] MED LIST changes: +CARDIZEM120 MG PO; +LIPITOR 10MG10 MG; +VENTOLIN0.09 MG IH
== END ==
LOC: MHCPAIN 13:52
DX: M54.16 Radiculopathy, lumbar region (principal); M47.896 Other spondylosis, lumbar region; G89.29 Other chronic pain
CPT/HCPCS: G0463

== ENCOUNTER → 2023-12-10 | Outpatient (CLI) | payer MEDICARE | LOC: MHCPAIN 13:52 | DX: M47.896 Other spondylosis, lumbar region (principal); M54.16 Radiculopathy, lumbar region | CPT/HCPCS: G0463 ==